=== PATIENT | male | born 1950 | race Caucasian/White ===

== ENCOUNTER 2020-12-28 05:20 | Observation (INO) | payer MEDICARE, OTHER ==
--- NOTE | 2020-12-28 05:57 | ERPHSYRPT ---
- History of Present Illness Source: patient Exam Limitations: no limitations Timing/Duration: day(s) (4) Activities at Onset: none Severity of Dyspnea-Max: moderate Severity of Dyspnea-Current: moderate Possible Cause: no prior episodes Modifying Factors: Improves With: coughing Associated Symptoms: cough <DONNA FERNANDEZ - Last Filed: 12/28/20 06:44> <KARL IRWIN - Last Filed: 12/28/20 11:01> - History of Present Illness Time Seen by Provider: 12/28/20 05:40 Physician History: This is a 70-year-old white male has a history of congestive heart failure and has a pacemaker/defibrillator in place and presents with 4-day history of coughing and shortness of breath. 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 He continues to work at [employer]. He underwent an EGD/colonoscopy 4 days ago and on the way home he began having shortness of breath and has persisted over the last 4 days. Patient is on Coumadin and was told to stop this medication prior to his endoscopies. He restarted the medication after his procedure. He has not noticed any significant bleeding. He denies chest pain. Said no nausea or vomiting. His main issue is shortness of breath. He has not had fevers. He has no abdominal pain. This is the patient's first visit to our emergency department. His primary doctor is in [facility] and his bank and savings securities trader is in [facility]. Patient's room air oxygenation level on the arrival to the emergency department is 95%. Patient has not taken his medication this morning. (DONNA FERNANDEZ) Allergies/Adverse Reactions: No Known Drug Allergies Allergy (Unverified 12/28/20 05:30) Home Medications: Aspirin EC 81 mg [Ecotrin 81 mg] 81 mg PO DAILY 12/28/20 [History] Atorvastatin Calcium 20 mg PO HS 12/28/20 [History] Carvedilol 12.5 mg [Coreg 12.5 mg] 12.5 mg PO BID 12/28/20 [History] Citalopram Hydrobromide 20 mg* [ceLEXa 20 MG] 20 mg PO DAILY 12/28/20 [History] Digoxin 0.125 mg Tablet [Lanoxin 0.125MG TABLET] 0.125 mg PO DAILY 12/28/20 [History] Furosemide 40 mg [Lasix 40 MG] 40 mg PO DAILY 12/28/20 [History] Glimepiride 4 mg [Amaryl 4 mg] 4 mg PO DAILY 12/28/20 [History] Lisinopril 10 mg [Zestril 10 MG] 10 mg PO DAILY 12/28/20 [History] [place]-3 Fatty Acids/Fish Oil [Fish Oil 1,000 mg Capsule] 1,000 mg PO DAILY 12/28/20 [History] Potassium Chloride [Klor-Con 10] 10 meq PO DAILY 12/28/20 [History] Spironolactone 12.5 mg PO DAILY 12/28/20 [History] Warfarin Sodium 5 mg [Coumadin 5 MG] 5 mg PO DAILY 12/28/20 [History] Travel Risk - International Travel Have you traveled outside of the country in past 3 weeks: No - Coronavirus Screening Are you exhibiting any of the following symptoms?: No Close contact with a COVID-19 positive Pt in past 14-21 Days: No <DONNA FERNANDEZ - Last Filed: 12/28/20 06:44> - Review of Systems Constitutional: No Symptoms Eyes: No Symptoms Ears, Nose, & Throat: No Symptoms Respiratory: Cough, Dyspnea Cardiac: No Symptoms Abdominal/Gastrointestinal: No Symptoms Genitourinary Symptoms: No Symptoms Musculoskeletal: No Symptoms Skin: No Symptoms Neurological: No Symptoms Psychological: No Symptoms Endocrine: No Symptoms Hematologic/Lymphatic: No Symptoms Immunological/Allergic: No Symptoms All Other Systems: Reviewed and Negative <DONNA FERNANDEZ - Last Filed: 12/28/20 06:44> - Past Medical History Pertinent Past Medical History: Yes Neurological History: No Pertinent History ENT History: Cataracts Cardiac History: Congestive Heart Failure, High Cholesterol, Hypertension, Myocardial Infarction ([place]) Respiratory History: CHF, Sleep Apnea Endocrine Medical History: Diabetes Type II Musculoskeletal History: No Pertinent History GI Medical History: No Pertinent History History: No Pertinent History Psycho-Social History: Depression Male Reproductive Disorders: No Pertinent History - Past Surgical History Past Surgical History: Yes Neuro Surgical History: No Pertinent History Cardiac: Cardiac Catheterization, Internal Defibrillator, Pacemaker Respiratory: No Pertinent History Gastrointestinal: No Pertinent History Genitourinary: No Pertinent History Musculoskeletal: No Pertinent History Male Surgical History: No Pertinent History - Social History Drug Use: none <DONNA FERNANDEZ - Last Filed: 12/28/20 06:44> - Physical Exam General Appearance: no apparent distress, alert Eye Exam: PERRL/EOMI, eyes nml inspection Ears, Nose, Throat Exam: hearing grossly normal, normal ENT inspection, normal pharynx Neck Exam: normal inspection, non-tender, supple, full range of motion Respiratory Exam: normal breath sounds, lungs clear, airway intact, No chest tenderness, No respiratory distress Cardiovascular/Chest Exam: normal heart sounds, regular rate/rhythm, normal p eripheral pulses Abdominal/Gastrointestinal Exam: soft, normal bowel sounds, No tenderness Rectal Exam: not done Extremity Exam: non-tender, normal range of motion, pedal edema, swelling Neurologic Exam: alert, oriented x 3, cooperative, perinatal nurse II-XII nml as tested, normal mood/affect, nml cerebellar function, nml station & gait, sensation nml Skin Exam: normal color, warm, dry Lymphatic Exam: No adenopathy SpO2 Interpretation: borderline oxygenation SpO2: 95 O2 Delivery: Room Air <DONNA FERNANDEZ - Last Filed: 12/28/20 06:44> - Nursing Vital Signs Nursing Vital Signs: Initial Vital Signs Temperature 97.9 F 12/28/20 05:22 Pulse Rate 58 L 12/28/20 05:22 Respiratory Rate 20 12/28/20 05:22 Blood Pressure 179/90 12/28/20 05:22 O2 Sat by Pulse Oximetry 95 12/28/20 05:22 Pain Scale Pain Intensity 0 - Course EKG Interpreted by Me: RATE, Sinus Rhythm (59), Left [place] Deviation, Other (Prolonged SD interval. There is no acute ischemic changes on today's EKG. Th ere is no comparison EKG available.) <DONNA FERNANDEZ - Last Filed: 12/28/20 06:44> Ordered Tests: Active Orders 24 hr Category Date Time Status Drapery Seamstress STAT Care 12/28/20 06:03 Active EKG-ER Only STAT Care 12/28/20 06:02 Active IV Insertion STAT Care 12/28/20 06:02 Active Pulse Oximetry (ED) STAT Care 12/28/20 06:02 Active CHEST 1 VIEW (PORTABLE) Stat Exams 12/28/20 06:02 Completed CHEST WITH CONTRAST [CT] Stat Exams 12/28/20 07:21 Completed BLOOD CULTURE Stat Lab 12/28/20 06:30 Received CBC W DIFF Stat Lab 12/28/20 06:02 Completed CMP Stat Lab 12/28/20 06:30 Completed D-DIMER QUANTITATIVE Stat Lab 12/28/20 06:30 Completed Lactic Acid Stat Lab 12/28/20 06:05 Completed MAGNESIUM Stat Lab 12/28/20 06:30 Completed NT PRO BNP Stat Lab 12/28/20 06:30 Completed PROTIME WITH INR Stat Lab 12/28/20 06:30 Completed TROPONIN Q3H Lab 12/28/20 06:30 Completed TROPONIN Q3H Lab 12/28/20 09:16 Completed TROPONIN Q3H Lab 12/28/20 12:15 Ordered TROPONIN Q3H Lab 12/28/20 15:15 Ordered TROPONIN Q3H Lab 12/28/20 18:15 Ordered Respiratory Therapy Assessment DAILY RT 12/28/20 08:22 Active Medication Summary Discontinued Medications Generic Name Dose Route Start Last Admin Trade Name Freq PRN Reason Stop Dose Admin Albuterol/Ipratropium 3 ml 12/28/20 08:06 12/28/20 08:19 Ipratropium/Albuterol Sulfate 3 Ml Ampul.Neb IH 12/28/20 08:07 3 ml STAT ONE Administration Albuterol/Ipratropium Confirm 12/28/20 08:18 Ipratropium/Albuterol Sulfate 3 Ml Ampul.Neb Administered 12/28/20 08:19 Dose 3 ml IH .STK-MED ONE Furosemide 60 mg 12/28/20 09:22 12/28/20 09:24 Furosemide 100 Mg/10 Ml Vial IV 12/28/20 09:23 60 mg STAT ONE Administration Furosemide Confirm 12/28/20 09:23 Furosemide 100 Mg/10 Ml Vial Administered 12/28/20 09:24 Dose 100 mg .ROUTE .STK-MED ONE Lab/Rad Data: Laboratory Result Diagrams 12/28/20 06:02 12/28/20 06:30 Laboratory Results 12/28/20 12/28/20 12/28/20 Range/Units 09:16 06:30 06:30 WBC (4.0-10.5) K/mm3 RBC (4.1-5.6) M/mm3 Hgb (12.5-18.0) gm/dl Hct (42-50) % MCV (78-100) fl MCH (26-32) pg MCHC (32-36) g/dl RDW (11.5-14.0) % Plt Count (150-450) K/mm3 MPV (7.5-11.0) fl Gran % (36.0-66.0) % Eos # (Auto) (0-0.5) Absolute Lymphs (auto) (1.0-4.6) Absolute Monos (auto) (0.0-1.3) Lymphocytes % (24.0-44.0) % Monocytes % (0.0-12.0) % Eosinophils % (0.00-5.0) % Basophils % (0.0-0.4) % Absolute Granulocytes (1.4-6.9) Basophils # (0-0.4) PT (9.4-12.5) SECONDS INR (0.8-3.0) D-Dimer (215-500) ng/mL Sodium (137-145) mmol/L Potassium (3.5-5.1) mmol/L Chloride (98-107) mmol/L Carbon Dioxide (22-30) mmol/L Anion Gap (5-15) MEQ/L BUN (9-20) mg/dL Creatinine (0.66-1.25) mg/dL Estimated GFR ML/MIN Glucose (74-106) mg/dL Lactic Acid (0.4-2.0) Calcium (8.4-10.2) mg/dL Magnesium (1.6-2.3) mg/dL Total Bilirubin (0.2-1.3) mg/dL AST (17-59) U/L ALT (0-50) U/L Alkaline Phosphatase (38-126) U/L Troponin I < 0.012 < 0.012 (0.000-0.034) ng/mL NT-Pro-B Natriuret Pep (0-900) pg/mL Serum Total Protein (6.3-8.2) g/dL Albumin (3.5-5.0) g/dL Digoxin < 0.4 L (0.8-1.9) ng/mL 12/28/20 12/28/20 12/28/20 Range/Units 06:30 06:30 06:05 WBC (4.0-10.5) K/mm3 RBC (4.1-5.6) M/mm3 Hgb (12.5-18.0) gm/dl Hct (42-50) % MCV (78-100) fl MCH (26-32) pg MCHC (32-36) g/dl RDW (11.5-14.0) % Plt Count (150-450) K/mm3 MPV (7.5-11.0) fl Gran % (36.0-66.0) % Eos # (Auto) (0-0.5) Absolute Lymphs (auto) (1.0-4.6) Absolute Monos (auto) (0.0-1.3) Lymphocytes % (24.0-44.0) % Monocytes % (0.0-12.0) % Eosinophils % (0.00-5.0) % Basophils % (0.0-0.4) % Absolute Granulocytes (1.4-6.9) Basophils # (0-0.4) PT 24.6 H (9.4-12.5) SECONDS INR 2.08 (0.8-3.0) D-Dimer 1110 H* (215-500) ng/mL Sodium 140 (137-145) mmol/L Potassium 4.3 (3.5-5.1) mmol/L Chloride 107 (98-107) mmol/L Carbon Dioxide 22 (22-30) mmol/L Anion Gap 15.2 H (5-15) MEQ/L BUN 17 (9-20) mg/dL Creatinine 0.88 (0.66-1.25) mg/dL Estimated GFR > 60.0 ML/MIN Glucose 124 H (74-106) mg/dL Lactic Acid 1.0 (0.4-2.0) Calcium 8.9 (8.4-10.2) mg/dL Magnesium 2.0 (1.6-2.3) mg/dL Total Bilirubin 1.60 H (0.2-1.3) mg/dL AST 75 H (17-59) U/L ALT 90 H (0-50) U/L Alkaline Phosphatase 139 H (38-126) U/L Troponin I (0.000-0.034) ng/mL NT-Pro-B Natriuret Pep 1580 H (0-900) pg/mL Serum Total Protein 6.7 (6.3-8.2) g/dL Albumin 3.9 (3.5-5.0) g/dL Digoxin (0.8-1.9) ng/mL 12/28/20 Range/Units 06:02 WBC 8.3 (4.0-10.5) K/mm3 RBC 4.18 (4.1-5.6) M/mm3 Hgb 11.3 L (12.5-18.0) gm/dl Hct 35.6 L (42-50) % MCV 85.2 (78-100) fl MCH 27.0 (26-32) pg MCHC 31.7 L (32-36) g/dl RDW 17.8 H (11.5-14.0) % Plt Count 251 (150-450) K/mm3 MPV 12.2 H (7.5-11.0) fl Gran % 59.3 (36.0-66.0) % Eos # (Auto) 0.87 H (0-0.5) Absolute Lymphs (auto) 1.50 (1.0-4.6) Absolute Monos (auto) 0.97 (0.0-1.3) Lymphocytes % 18.1 L (24.0-44.0) % Monocytes % 11.7 (0.0-12.0) % Eosinophils % 10.5 H (0.00-5.0) % Basophils % 0.4 (0.0-0.4) % Absolute Granulocytes 4.94 (1.4-6.9) Basophils # 0.03 (0-0.4) PT (9.4-12.5) SECONDS INR (0.8-3.0) D-Dimer (215-500) ng/mL Sodium (137-145) mmol/L Potassium (3.5-5.1) mmol/L Chloride (98-107) mmol/L Carbon Dioxide (22-30) mmol/L Anion Gap (5-15) MEQ/L BUN (9-20) mg/dL Creatinine (0.66-1.25) mg/dL Estimated GFR ML/MIN Glucose (74-106) mg/dL Lactic Acid (0.4-2.0) Calcium (8.4-10.2) mg/dL Magnesium (1.6-2.3) mg/dL Total Bilirubin (0.2-1.3) mg/dL AST (17-59) U/L ALT (0-50) U/L Alkaline Phosphatase (38-126) U/L Troponin I (0.000-0.034) ng/mL NT-Pro-B Natriuret Pep (0-900) pg/mL Serum Total Protein (6.3-8.2) g/dL Albumin (3.5-5.0) g/dL Digoxin (0.8-1.9) ng/mL - Progress Progress: improved Air Movement: good Blood Culture(s) Obtained: No Antibiotics given: No Counseled pt/family regarding: lab results, diagnosis, rad results <DONNA FERNANDEZ - Last Filed: 12/28/20 06:44> <KARL IRWIN - Last Filed: 12/28/20 11:01> - Progress Progress Note: 12/28/20 06:45 At shift change, patient was signed out/transferred care to Dr. Irwin. He will follow up on pending labs and make final disposition. (DONNA FERNANDEZ) 12/28/20 10:55 patient is checked out to me at shift change from Dr. Fernandez with pending work-up. Patient presented with increasing shortness of breath for the last few days. He has normal white count, negative troponins. Anticoagu lated with INR therapeutic. Has some elevated transaminases but no right upper quadrant tenderness. Has elevated D-dimers and I have obtained CTA chest which is negative for pulmonary embolism but did show some congestion, pericardial effusion and some pleural effusion/CHF exacerbation. Given IV Lasix and DuoNeb. Patient is currently on 2 L oxygen with saturation around 96%. I have discussed with Dr. Leavitt and patient is accepted for admission. (KARL IRWIN) - Departure Departure Disposition: Home Critical Care Time: No <DONNA FERNANDEZ - Last Filed: 12/28/20 06:44> - Departure Departure Disposition: Observation <KARL IRWIN - Last Filed: 12/28/20 11:01> - Departure Clinical Impression: Shortness of breath, CHF exacerbation Condition: Stable Referrals: Provider,Unknown [Primary Care Provider] - Instructions: Heart Failure
[2020-12-28 06:48] LABS: Absolute Neutrophil Ct (ANC) 4.94 (1.4-6.9); BASOPHIL % 0.4 % (0.0-0.4); Basophil (Absolute #) 0.03 (0-0.4); Eosinophil % 10.5 % (0.00-5.0); Eosinophil (Absolute #) 0.87 (0-0.5); Hematocrit 35.6 % (42-50); Hemoglobin 11.3 gm/dl (12.5-18.0); Lymphocytes % 18.1 % (24.0-44.0); Mean Cell Volume 85.2 fl (78-100); Mean Corpuscular Hgb Concent. 31.7 g/dl (32-36); Mean Platelet Volume 12.2 fl (7.5-11.0); Monocyte (Absolute #) 0.97 (0.0-1.3); Monocytes % 11.7 % (0.0-12.0); Neutrophil % 59.3 % (36.0-66.0); Platelet Count 251 K/mm3 (150-450); Red Blood Count 4.18 M/mm3 (4.1-5.6); Red Cell Distribution Width 17.8 % (11.5-14.0); White Blood Count 8.3 K/mm3 (4.0-10.5)
[2020-12-28 07:11] LABS: ALBUMIN 3.9 g/dL (3.5-5.0); ALKALINE PHOSPHATASE 139 U/L (38-126); ANION GAP 15.2 MEQ/L (5-15); BLOOD UREA NITROGEN 17 mg/dL (9-20); CHLORIDE 107 mmol/L (98-107); Calcium 8.9 mg/dL (8.4-10.2); Carbon Dioxide 22 mmol/L (22-30); Creatinine 1 0.88 mg/dL (0.66-1.25); EST GLOMERULAR FILTRATION RATE > 60.0 ML/MIN; Glucose 124 mg/dL (74-106); INR 2.08 (0.8-3.0); NT PRO BNP 1580 pg/mL (0-900); PROTIME 24.6 SECONDS (9.4-12.5); Potassium 4.3 mmol/L (3.5-5.1); SGOT/AST 75 U/L (17-59); SGPT/ALT 90 U/L (0-50); SODIUM 140 mmol/L (137-145); Total Protein 6.7 g/dL (6.3-8.2)
[2020-12-28] MEDS ORDERED: DUONEB 0.5-3 MG/3 ml Neb IH ONE ×2 (08:06→08:18)
--- NOTE | 2020-12-28 08:48 | XRAY ---
Indication: Elevated d-dimer. Multiple contiguous axial images obtained through the chest using 80 cc Isovue 370 contrast and PE protocol. Comparison: None There is good opacification of the pulmonary arteries including lobar and segmental branches. No pulmonary embolus. Heart is borderline enlarged with small pericardial effusion anteriorly and left-sided pacemaker. Several prominent mediastinal and subcarinal lymph nodes, largest subcarinal measuring 2.0 x 3.2 cm possibly reactive. A few tiny subcarinal calcified nodes. No pathologic hilar lymphadenopathy. Lungs are inflated with moderate bilateral effusion with dependent atelectasis. No suspicious pulmonary mass or infiltrate. Bony thorax intact with mild dejected changes throughout the spine. Limited upper abdomen demonstrates splenic calcified granuloma. Impression: 1. Negative pulmonary embolus. 2. Borderline cardiomegaly with small pericardial effusion and bilateral pleural effusions. Rule out mild or early cardiac decompensation/CHF. 3. Prominent mediastinal lymph nodes possibly reactive. Malignancy not completely excluded in the right clinical setting. 4. Incidental old granulomatous disease.
--- NOTE | 2020-12-28 09:04 | XRAY ---
Indication: Cough. Short of breath. Comparison: None Portable chest inflated with CT proven tiny bibasilar effusions. Upper lungs are clear. Heart borderline enlarged with a left-sided AICD. Bony thorax intact with mild osteopenia and degenerative changes.
[2020-12-28] MEDS ORDERED: Furosemide 100mg/10 ml Vial IV ONE (09:22)
[2020-12-28] MEDS ORDERED: Furosemide 100mg/10 ml Vial ONE (09:23)
[2020-12-28] MEDS ORDERED: DUONEB 0.5-3 MG/3 ml Neb IH PRN (12:48)
[2020-12-28] MEDS ORDERED: HUMALOG SQ PRN (12:48)
[2020-12-28] MEDS ORDERED: TYLENOL 325 MG PO PRN (12:48)
[2020-12-28] MEDS ORDERED: Zofran 4 MG/2 ML VIAL IV PRN (12:48)
[2020-12-28] MEDS: Lasix 40 MG/4 ML IV SCH ×2 (15:03→22:17)
[2020-12-28] MEDS: PROTONIX 40 MG IV IV SCH (15:03)
--- NOTE | 2020-12-28 18:18 | PCM.HP ---
History of Present Illness - Chief Complaint Chief Complaint: CHF exacerbation History of Present Illness: is a 70 year old male patient of Dr Gurpreet Edmondson of [facility] who presented to ER with 4 days of cough and sob.This started after EGD and Colonoscopy. PMHx DM2 on oral meds,HTN,CAD with NE 2007 reports EF 33% ,S/P pacemaker/defibrillator followed by Dr Wm Nguyen and Dr Rivas Curtis at [facility]. 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 He is asking to go home,feels he is at baseline but is on 2L O2 and has not been on O2 at home. - Review of Systems Constitutional: No Symptoms Eyes: No Symptoms Ears, Nose, & Throat: No Symptoms Respiratory: Cough, Short Of Breath Cardiac: Edema Abdominal/Gastrointestinal: No Symptoms Genitourinary Symptoms: No Symptoms Musculoskeletal: No Symptoms Skin: No Symptoms Neurological: No Symptoms Psychological: No Symptoms, Other (mood stable on current antidepressant) Endocrine: Other (DM2 mild hyperglycemia on oral meds per ptn) Medications & Allergies Home Medications: Home Medication List Aspirin EC 81 mg [Ecotrin 81 mg] 81 mg PO DAILY 12/28/20 [History Confirmed 12/28/20] Atorvastatin Calcium 20 mg PO HS 12/28/20 [History Confirmed 12/28/20] Carvedilol 12.5 mg [Coreg 12.5 mg] 12.5 mg PO BID 12/28/20 [History Confirmed 12/28/20] Cholecalciferol (Vitamin D3) [Vitamin D] 2,000 unit PO DAILY 12/28/20 [History Confirmed 12/28/20] Citalopram Hydrobromide 20 mg* [ceLEXa 20 MG] 20 mg PO DAILY 12/28/20 [History Confirmed 12/28/20] Digoxin 0.125 mg Tablet [Lanoxin 0.125MG TABLET] 0.125 mg PO DAILY 12/28/20 [History Confirmed 12/28/20] Furosemide 20 mg [Lasix 20 mg] 20 mg PO HS 12/28/20 [History Confirmed 12/28/20] Furosemide 40 mg [Lasix 40 MG] 40 mg PO DAILY 12/28/20 [History Confirmed 12/28/20] Glimepiride 4 mg [Amaryl 4 mg] 4 mg PO DAILY 12/28/20 [History Confirmed 12/28/20] Lisinopril 10 mg [Zestril 10 MG] 10 mg PO DAILY 12/28/20 [History Confirmed 12/28/20] [place]-3 Fatty Acids/Fish Oil [Fish Oil 1,000 mg Capsule] 1,000 mg PO DAILY 12/28/20 [History Confirmed 12/28/20] Spironolactone 12.5 mg PO DAILY 12/28/20 [History Confirmed 12/28/20] Vitamin B Complex 1 each PO DAILY 12/28/20 [History Confirmed 12/28/20] Warfarin Sodium 5 mg [Coumadin 5 MG] 5 mg PO DAILY 12/28/20 [History Confirmed 12/28/20] Allergies/Adverse Reactions: Allergies Allergy/AdvReac Type Severity Reaction Status Date / Time No Known Drug Allergies Allergy Unverified 12/28/20 05:30 - Past Medical History Past Medical History: Yes Neurological History: No Pertinent History ENT History: Cataracts Cardiac History: Congestive Heart Failure, High Cholesterol, Hypertension, Myocardial Infarction (NE) Respiratory History: CHF, Sleep Apnea Endocrine Medical History: Diabetes Type II Musculoskelatal History: No Pertinent History GI Medical History: No Pertinent History History: No Pertinent History Pyscho-Social History: Depression Male Reproductive Disorders: No Pertinent History - Past Surgical History Past Surgical History: Yes Neuro Surgical History: No Pertinent History Cardiac History: Cardiac Catheterization, Internal Defibrillator, Pacemaker Respiratory Surgery: No Pertinent History GI Surgical History: No Pertinent History Genitourinary Surgical Hx: No Pertinent History Musculskeletal Surgical Hx: No Pertinent History Male Surgical History: No Pertinent History - Social History Smoking Status: Never smoker Exposure to second hand smoke: No Alcohol: None Drug Use: none - Physical Exam Vital Signs: Vital Signs - 24 hr Temp Pulse Resp BP Pulse Ox 12/28/20 17:39 54 L 18 97 12/28/20 16:00 97.5 F 50 L 17 167/74 97 12/28/20 12:00 71 23 154/67 94 L 12/28/20 10:00 55 L 19 167/79 96 12/28/20 08:54 54 L 18 135/45 94 L 12/28/20 08:23 53 L 22 96 12/28/20 07:22 53 L 27 H 152/71 96 12/28/20 06:46 95 12/28/20 06:22 54 L 24 120/67 96 12/28/20 06:05 95 12/28/20 05:59 20 95 12/28/20 05:22 97.9 F 58 L 20 179/90 95 General Appearance: no apparent distress Neurologic Exam: alert, oriented x 3, cooperative, 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, normal mood/affect, nml cerebellar function, nml station & gait Eye Exam: eyes nml inspection Ears, Nose, Throat Exam: normal ENT inspection Neck Exam: normal inspection Respiratory Exam: diminished breath sounds Cardiovascular Exam: bradycardia (regular), edema (1+/4 edema ankles) Gastrointestinal/Abdomen Exam: soft, normal bowel sounds, distention (mild,nontender) Extremity Exam: normal inspection (no calf tenderness) Skin Exam: warm, dry (dusky color) Results - Labs Lab/Micro Results: Lab Results-Last 24 Hours 12/28/20 12/28/20 12/28/20 Range/Units 06:02 06:02 06:05 WBC 8.3 (4.0-10.5) K/mm3 RBC 4.18 (4.1-5.6) M/mm3 Hgb 11.3 L (12.5-18.0) gm/dl Hct 35.6 L (42-50) % MCV 85.2 (78-100) fl MCH 27.0 (26-32) pg MCHC 31.7 L (32-36) g/dl RDW 17.8 H (11.5-14.0) % Plt Count 251 (150-450) K/mm3 MPV 12.2 H (7.5-11.0) fl Gran % 59.3 (36.0-66.0) % Eos # (Auto) 0.87 H (0-0.5) Absolute Lymphs (auto) 1.50 (1.0-4.6) Absolute Monos (auto) 0.97 (0.0-1.3) Lymphocytes % 18.1 L (24.0-44.0) % Monocytes % 11.7 (0.0-12.0) % Eosinophils % 10.5 H (0.00-5.0) % Basophils % 0.4 (0.0-0.4) % Absolute Granulocytes 4.94 (1.4-6.9) Basophils # 0.03 (0-0.4) PT (9.4-12.5) SECONDS INR (0.8-3.0) D-Dimer (215-500) ng/mL Sodium (137-145) mmol/L Potassium (3.5-5.1) mmol/L Chloride (98-107) mmol/L Carbon Dioxide (22-30) mmol/L Anion Gap (5-15) MEQ/L BUN (9-20) mg/dL Creatinine (0.66-1.25) mg/dL Estimated GFR ML/MIN Glucose (74-106) mg/dL Hemoglobin A1c 8.04 H (4.5-6.0) % Lactic Acid 1.0 (0.4-2.0) Calcium (8.4-10.2) mg/dL Magnesium (1.6-2.3) mg/dL Total Bilirubin (0.2-1.3) mg/dL AST (17-59) U/L ALT (0-50) U/L Alkaline Phosphatase (38-126) U/L Troponin I (0.000-0.034) ng/mL NT-Pro-B Natriuret Pep (0-900) pg/mL Serum Total Protein (6.3-8.2) g/dL Albumin (3.5-5.0) g/dL Digoxin (0.8-1.9) ng/mL SARS-CoV-2 (PCR) (NEGATIVE) 12/28/20 12/28/20 12/28/20 Range/Units 06:30 06:30 06:30 WBC (4.0-10.5) K/mm3 RBC (4.1-5.6) M/mm3 Hgb (12.5-18.0) gm/dl Hct (42-50) % MCV (78-100) fl MCH (26-32) pg MCHC (32-36) g/dl RDW (11.5-14.0) % Plt Count (150-450) K/mm3 MPV (7.5-11.0) fl Gran % (36.0-66.0) % Eos # (Auto) (0-0.5) Absolute Lymphs (auto) (1.0-4.6) Absolute Monos (auto) (0.0-1.3) Lymphocytes % (24.0-44.0) % Monocytes % (0.0-12.0) % Eosinophils % (0.00-5.0) % Basophils % (0.0-0.4) % Absolute Granulocytes (1.4-6.9) Basophils # (0-0.4) PT 24.6 H (9.4-12.5) SECONDS INR 2.08 (0.8-3.0) D-Dimer 1110 H* (215-500) ng/mL Sodium 140 (137-145) mmol/L Potassium 4.3 (3.5-5.1) mmol/L Chloride 107 (98-107) mmol/L Carbon Dioxide 22 (22-30) mmol/L Anion Gap 15.2 H (5-15) MEQ/L BUN 17 (9-20) mg/dL Creatinine 0.88 (0.66-1.25) mg/dL Estimated GFR > 60.0 ML/MIN Glucose 124 H (74-106) mg/dL Hemoglobin A1c (4.5-6.0) % Lactic Acid (0.4-2.0) Calcium 8.9 (8.4-10.2) mg/dL Magnesium 2.0 (1.6-2.3) mg/dL Total Bilirubin 1.60 H (0.2-1.3) mg/dL AST 75 H (17-59) U/L ALT 90 H (0-50) U/L Alkaline Phosphatase 139 H (38-126) U/L Troponin I < 0.012 (0.000-0.034) ng/mL NT-Pro-B Natriuret Pep 1580 H (0-900) pg/mL Serum Total Protein 6.7 (6.3-8.2) g/dL Albumin 3.9 (3.5-5.0) g/dL Digoxin (0.8-1.9) ng/mL SARS-CoV-2 (PCR) (NEGATIVE) 12/28/20 12/28/20 12/28/20 Range/Units 06:30 09:16 11:19 WBC (4.0-10.5) K/mm3 RBC (4.1-5.6) M/mm3 Hgb (12.5-18.0) gm/dl Hct (42-50) % MCV (78-100) fl MCH (26-32) pg MCHC (32-36) g/dl RDW (11.5-14.0) % Plt Count (150-450) K/mm3 MPV (7.5-11.0) fl Gran % (36.0-66.0) % Eos # (Auto) (0-0.5) Absolute Lymphs (auto) (1.0-4.6) Absolute Monos (auto) (0.0-1.3) Lymphocytes % (24.0-44.0) % Monocytes % (0.0-12.0) % Eosinophils % (0.00-5.0) % Basophils % (0.0-0.4) % Absolute Granulocytes (1.4-6.9) Basophils # (0-0.4) PT (9.4-12.5) SECONDS INR (0.8-3.0) D-Dimer (215-500) ng/mL Sodium (137-145) mmol/L Potassium (3.5-5.1) mmol/L Chloride (98-107) mmol/L Carbon Dioxide (22-30) mmol/L Anion Gap (5-15) MEQ/L BUN (9-20) mg/dL Creatinine (0.66-1.25) mg/dL Estimated GFR ML/MIN Glucose (74-106) mg/dL Hemoglobin A1c (4.5-6.0) % Lactic Acid (0.4-2.0) Calcium (8.4-10.2) mg/dL Magnesium (1.6-2.3) mg/dL Total Bilirubin (0.2-1.3) mg/dL AST (17-59) U/L ALT (0-50) U/L Alkaline Phosphatase (38-126) U/L Troponin I < 0.012 (0.000-0.034) ng/mL NT-Pro-B Natriuret Pep (0-900) pg/mL Serum Total Protein (6.3-8.2) g/dL Albumin (3.5-5.0) g/dL Digoxin < 0.4 L (0.8-1.9) ng/mL SARS-CoV-2 (PCR) NEGATIVE (NEGATIVE) 12/28/20 12/28/20 Range/Units 12:10 15:13 WBC (4.0-10.5) K/mm3 RBC (4.1-5.6) M/mm3 Hgb (12.5-18.0) gm/dl Hct (42-50) % MCV (78-100) fl MCH (26-32) pg MCHC (32-36) g/dl RDW (11.5-14.0) % Plt Count (150-450) K/mm3 MPV (7.5-11.0) fl Gran % (36.0-66.0) % Eos # (Auto) (0-0.5) Absolute Lymphs (auto) (1.0-4.6) Absolute Monos (auto) (0.0-1.3) Lymphocytes % (24.0-44.0) % Monocytes % (0.0-12.0) % Eosinophils % (0.00-5.0) % Basophils % (0.0-0.4) % Absolute Granulocytes (1.4-6.9) Basophils # (0-0.4) PT (9.4-12.5) SECONDS INR (0.8-3.0) D-Dimer (215-500) ng/mL Sodium (137-145) mmol/L Potassium (3.5-5.1) mmol/L Chloride (98-107) mmol/L Carbon Dioxide (22-30) mmol/L Anion Gap (5-15) MEQ/L BUN (9-20) mg/dL Creatinine (0.66-1.25) mg/dL Estimated GFR ML/MIN Glucose (74-106) mg/dL Hemoglobin A1c (4.5-6.0) % Lactic Acid (0.4-2.0) Calcium (8.4-10.2) mg/dL Magnesium (1.6-2.3) mg/dL Total Bilirubin (0.2-1.3) mg/dL AST (17-59) U/L ALT (0-50) U/L Alkaline Phosphatase (38-126) U/L Troponin I < 0.012 < 0.012 (0.000-0.034) ng/mL NT-Pro-B Natriuret Pep (0-900) pg/mL Serum Total Protein (6.3-8.2) g/dL Albumin (3.5-5.0) g/dL Digoxin (0.8-1.9) ng/mL SARS-CoV-2 (PCR) (NEGATIVE) Accuchecks Date 12/28/20 Time 17:05 - Radiology Impressions Radiology Exams & Impressions: Radiology Procedures Category Date Time Status ABDOMINAL-LIMITED [US] Routine Exams 12/29/20 06:00 Ordered CHEST 1 VIEW (PORTABLE) Stat Exams 12/28/20 06:02 Completed CHEST WITH CONTRAST [CT] Stat Exams 12/28/20 07:21 Completed - Other Procedures and Tests Respiratory Therapy 12/28/20 12:48 Oxygen Nasal Cannula 2 lpm 12/28/20 17:38 Respiratory Therapy Assessment DAILY Assessment/Plan (1) CHF exacerbation Current Visit: Yes Status: Acute Qualifiers: Heart failure type: unspecified Code(s): I50.9 - HEART FAILURE, UNSPECIFIED (2) Diabetes Current Visit: Yes Status: Chronic Qualifiers: Diabetes mellitus type: type 2 Diabetes mellitus machine long goods helper insulin use: without prison use Laterality: right Assessment & Plan: A1C=8%,monitor Code(s): E11.9 - TYPE 2 DIABETES MELLITUS WITHOUT COMPLICATIONS (3) long-term current use of anticoagulant Current Visit: Yes Status: Chronic Assessment & Plan: stable INR on coumadin Code(s): Z79.01 - PRISON (CURRENT) USE OF ANTICOAGULANTS (4) Elevated bilirubin Current Visit: Yes Status: Acute Assessment & Plan: GBUS for in the am. Code(s): R17 - UNSPECIFIED JAUNDICE
[2020-12-28] MEDS ORDERED: ZOCOR 20MG PO SCH (22:00)
[2020-12-28] MEDS: COREG 12.5 MG PO SCH (22:29)
[2020-12-29 05:27] LABS: Absolute Neutrophil Ct (ANC) 4.29 (1.4-6.9); BASOPHIL % 0.6 % (0.0-0.4); Basophil (Absolute #) 0.05 (0-0.4); Eosinophil % 14.7 % (0.00-5.0); Eosinophil (Absolute #) 1.17 (0-0.5); Hematocrit 36.5 % (42-50); Hemoglobin 11.6 gm/dl (12.5-18.0); Lymphocyte (Absolute #) 1.53 (1.0-4.6); Lymphocytes % 19.2 % (24.0-44.0); Mean Cell Volume 84.3 fl (78-100); Mean Corpuscular Hemoglobin 26.8 pg (26-32); Mean Corpuscular Hgb Concent. 31.8 g/dl (32-36); Mean Platelet Volume 11.5 fl (7.5-11.0); Monocyte (Absolute #) 0.91 (0.0-1.3); Monocytes % 11.4 % (0.0-12.0); Neutrophil % 54.1 % (36.0-66.0); Platelet Count 265 K/mm3 (150-450); Red Blood Count 4.33 M/mm3 (4.1-5.6); Red Cell Distribution Width 17.8 % (11.5-14.0)
[2020-12-29] MEDS: Lasix 40 MG/4 ML IV SCH (05:54)
[2020-12-29 06:14] LABS: ALBUMIN 3.8 g/dL (3.5-5.0); ALKALINE PHOSPHATASE 154 U/L (38-126); ANION GAP 15.7 MEQ/L (5-15); BLOOD UREA NITROGEN 16 mg/dL (9-20); CHLORIDE 101 mmol/L (98-107); Calcium 8.7 mg/dL (8.4-10.2); Carbon Dioxide 27 mmol/L (22-30); Creatinine 1 0.89 mg/dL (0.66-1.25); EST GLOMERULAR FILTRATION RATE > 60.0 ML/MIN; Glucose 105 mg/dL (74-106); Potassium 3.5 mmol/L (3.5-5.1); SGOT/AST 55 U/L (17-59); SGPT/ALT 77 U/L (0-50); SODIUM 140 mmol/L (137-145); Total Protein 6.7 g/dL (6.3-8.2)
[2020-12-29] MEDS ORDERED: AMARYL 4 MG PO SCH (08:00)
[2020-12-29] MEDS ORDERED: ceLEXa 20 MG PO SCH (10:00)
[2020-12-29] MEDS ORDERED: Aldactone 25 MG PO SCH (10:00)
[2020-12-29] MEDS ORDERED: ECOTRIN 81 MG PO SCH (10:00)
[2020-12-29] MEDS ORDERED: NON-FORMULARY ITEM (Vitamin B Complex [Vitamin B Complex] 1 EACH Tablet) PO SCH (10:00)
[2020-12-29] MEDS ORDERED: VITA-BEE WITH C PO SCH (10:00)
[2020-12-29] MEDS ORDERED: Zestril 10 MG PO SCH (10:00)
[2020-12-29] MEDS ORDERED: Lasix 40 MG PO SCH (10:00)
[2020-12-29] MEDS ORDERED: VITAMIN D PO SCH (10:00)
[2020-12-29] MEDS ORDERED: Lanoxin 0.125MG TABLET PO SCH (10:00)
[2020-12-29] MEDS ORDERED: FISH OIL 1,000 MG CAPSULE PO SCH (10:00)
--- NOTE | 2020-12-29 10:02 | XRAY ---
Indication: Elevated liver function tests. Two-dimensional right upper quadrant sonogram performed. Comparison: None Visualized liver fatty in echogenicity without focal solid/cystic mass. No ascites. Gallbladder normally distended without gallstones, wall thickening, or pericholecystic fluid. Common bile duct measures 4.6 mm. Remaining visualized pancreas and right kidney sonographically unremarkable. Right kidney measures 9.2 cm in length. Impression: Fatty liver. Remaining right upper quadrant sonogram is negative.
[2020-12-29] MEDS: COREG 12.5 MG PO SCH (10:33)
[2020-12-29] MEDS: PROTONIX 40 MG IV IV SCH (10:34)
[2020-12-29 11:51] VITALS: BP 155/67; PULSE 67; O2SAT 94
[2020-12-29] MEDS ORDERED: Coumadin 5 MG PO SCH (18:00)
[2020-12-29] MEDS ORDERED: LASIX 20 MG PO SCH (22:00)
[2020-12-30 13:08] LABS: HBsAg Screen Negative (Negative); Hep A Ab, IgM Negative (Negative); Hep B Core Ab, IgM Negative (Negative)
[2020-12-30 15:32] LABS: Hep C Virus Ab <0.1 s/co ratio (0.0-0.9)
== END 2020-12-29 12:30 | disposition home or self-care (01) ==
LOC: ED 05:20 → MED SURG 12:45
PROVIDERS: ADMIT Family Medicine; ATTEND Family Medicine
DX: I11.0 Hypertensive heart disease with heart failure (principal); I50.9 Heart failure, unspecified; E11.9 Type 2 diabetes mellitus without complications; R17 Unspecified jaundice; E78.00 Pure hypercholesterolemia, unspecified; Z79.899 Other long term (current) drug therapy; Z79.01 Long term (current) use of anticoagulants; Z20.822 Contact with and (suspected) exposure to COVID-19; Z95.0 Presence of cardiac pacemaker
CPT/HCPCS: 36000; 36415; 71045; 71260; 76705; 80053; 80074; 80162; 83036; 83605; 83735; 83880; 84484; 85025; 85379; 85610; 87040; 93005; 93041; 93268; 94640; 94760; 96374; 99285; G0378; U0003; J1817; J1940; A9270-GY